=== PATIENT | female | born 1965 | race Hispanic/Latino ===

== ENCOUNTER 2017-07-14 17:20 | Emergency (ER) | payer BC ==
[2017-07-14] MEDS ORDERED: ROBAXIN-750750 MG (17:43)
[2017-07-14] MEDS ORDERED: LOSARTAN POTASS25 MG (17:43)
[2017-07-14] MEDS ORDERED: NORCO 5-325 TA1 EACH PO (17:43)
[2017-07-14] MEDS ORDERED: ACYCLOVIR800 MG PO (18:02)
[2017-07-14] MEDS ORDERED: GABAPENTIN100 MG PO (18:02)
== END 2017-07-14 18:05 | disposition home or self-care (01) ==
LOC: FSED 17:20
DX: B02.9 Zoster without complications (principal); I10 Essential (primary) hypertension
CPT/HCPCS: 99282

== ENCOUNTER 2021-02-10 07:38 | Emergency (ER) | payer BC ==
[~2021-02-10] VITALS: Ht 152.4 cm; Wt 78.0 kg
[~2021-02-10 07:38] MED LIST: ACYCLOVIR800 MG PO; GABAPENTIN100 MG PO; LOSARTAN POTASS25 MG; NORCO 5-325 TA1 EACH PO; ROBAXIN-750750 MG
[2021-02-10] MEDS ORDERED: ACETAMINOPHEN-1 EAC4 PO (08:00)
[2021-02-10] MEDS ORDERED: VENTOLIN HFA18 GM INH (08:00)
[2021-02-10] MEDS ORDERED: AZITHROMYCIN250 MG PO (08:00)
[2021-02-10] MEDS ORDERED: PREDNISONE20 MG PO (08:00)
== END 2021-02-10 08:04 | disposition home or self-care (01) ==
LOC: FSED 07:53
DX: R05.9 Cough, unspecified (principal); J40 Bronchitis, not specified as acute or chronic; I10 Essential (primary) hypertension; Z98.84 Bariatric surgery status
CPT/HCPCS: 99282